=== PATIENT | female | born 1945 | race Caucasian/White ===

== ENCOUNTER 2022-01-24 10:12 | Inpatient (IN) | payer MEDICARE, OTHER, SELFPAY ==
[2022-01-24] VITALS (10 sets, daily range): BP systolic 102–151; BP diastolic 40–63; PULSE 58–70; RESP 11–18; TEMP 36.4–37; O2SAT 98–100; BMI 21.0
--- NOTE | ~2022-01-24 | CT_ITS ---
EXAMINATION: CT HEAD WITHOUT CONTRAST CLINICAL INFORMATION: Syncope. Head trauma. COMPARISON: None TECHNIQUE: Contiguous axial imaging was performed from the skull base to vertex without intravenous administration of contrast. This CT examination was performed using dose optimization techniques as appropriate, variously including the following: *Automated exposure control *Adjustment of mA and/or kV according to patient size (this includes techniques or standardized protocols for targeted exams where dose is matched to indication/reason for exam; i.e. extremities or head) *Use of iterative reconstruction technique DLP: 598 mGy-cm FINDINGS: There is no evidence of acute intracranial hemorrhage or territorial infarction. No abnormal mass effect or midline shift is seen. Bautista to white matter differentiation is well preserved. No extra-axial fluid collections are identified. The ventricles are normal in size. There is no abnormal attenuation within the brain parenchyma. The osseous structures and soft tissues are normal. The mastoid air cells and visualized portions of the paranasal sinuses are well aerated. CT/CT head/brain wo con IMPRESSION: Unremarkable exam.
--- NOTE | ~2022-01-24 | CT_ITS ---
EXAMINATION: CT ANGIOGRAM OF THE CHEST WITH AND WITHOUT CONTRAST (CT PULMONARY ANGIOGRAM FOR PE) CLINICAL INFORMATION: Reason for Exam r/o PE syncope twave inversions rib fxs COMPARISON: Left rib x-rays from earlier the same day TECHNIQUE: Prior to contrast administration, noncontrast localization images were obtained. Subsequently, multidetector volumetric imaging was performed from the thoracic inlet to below the diaphragms following the administration of 85 mL Omnipaque 350 intravenous contrast. No contrast reaction reported Sagittal, coronal, and MIP oblique sagittal reformatted images were obtained on the CT workstation, uploaded to PACS, and reviewed. This CT examination was performed using dose optimization techniques as appropriate, variously including the following: *Automated exposure control *Adjustment of mA and/or kV according to patient size (this includes techniques or standardized protocols for targeted exams where dose is matched to indication/reason for exam; i.e. extremities or head) *Use of iterative reconstruction technique Total exam dose-length product 177 mGy-cm FINDINGS: QUALITY OF STUDY/CONTRAST BOLUS: Satisfactory. PULMONARY ARTERIES: No central or segmental pulmonary emboli. THORACIC AORTA: No aneurysm or dissection. LUNG: There is mild biapical pleural parenchymal scarring. There is subsegmental atelectasis at both lung bases. PLEURA: There is question of a very tiny left pneumothorax adjacent to the rib fractures, for example measuring 2 mm coronal reconstructed image 50 and axial image 33. There is no pleural effusion. MEDIASTINUM: Normal heart size. No pericardial effusion. No hilar or mediastinal lymphadenopathy. No evidence of septal bowing or right heart strain. CHEST WALL/AXILLA: No axillary or internal mammary lymphadenopathy. OSSEOUS STRUCTURES: There are left posterior lateral ninth, 10th and 11th rib fractures. There are degenerative changes of the spine. UPPER ABDOMEN: Unremarkable. No reflux of contrast into the hepatic veins to suggest elevated right heart pressures. CT/CT angio chest PE protocol IMPRESSION: No evidence of pulmonary embolism. Acute left posterior lateral ninth, 10th and 11th rib x-rays. Question tiny left pneumothorax measuring maximum 2 mm in thickness. VTE: negative
--- NOTE | ~2022-01-24 | CT_ITS ---
EXAMINATION: CT CERVICAL SPINE WITHOUT CONTRAST CLINICAL INFORMATION: Fall. Syncope. COMPARISON: None TECHNIQUE: Axial images through the cervical spine without contrast. Sagittal and coronal reconstructions on the technologist workstation were performed. This CT examination was performed using dose optimization techniques as appropriate, variously including the following: *Automated exposure control *Adjustment of mA and/or kV according to patient size (this includes techniques or standardized protocols for targeted exams where dose is matched to indication/reason for exam; i.e. extremities or head) *Use of iterative reconstruction technique DLP: 261 mGy-cm FINDINGS: There is head tilt to the right. Bone alignment is otherwise normal. No fracture or dislocation is seen. There is degenerative spondylosis and degenerative disc disease at C4-C5 and C5-C6. There are degenerative changes at the C1 dens articulation. Prevertebral soft tissues are normal. There is biapical pleural parenchymal scarring. CT/CT cervical spine wo con IMPRESSION: Degenerative changes. No fracture or dislocation seen. Fleischner guidelines were followed.
--- NOTE | ~2022-01-24 | CT_ITS ---
EXAMINATION: CT ABDOMEN AND PELVIS WITH CONTRAST CLINICAL INFORMATION: Multiple rib fractures. Rule out intra-abdominal injury COMPARISON: None TECHNIQUE: Multidetector volumetric images were obtained from the superior aspect of the liver through the pubic symphysis following administration 85 mL of Omnipaque 350 intravenous contrast. Sagittal and coronal reformatted images were obtained on the technologist's workstation. Oral contrast: Yes This CT examination was performed using dose optimization techniques as appropriate, variously including the following: *Automated exposure control *Adjustment of mA and/or kV according to patient size (this includes techniques or standardized protocols for targeted exams where dose is matched to indication/reason for exam; i.e. extremities or head) *Use of iterative reconstruction technique DLP: 340 mGy-cm FINDINGS: LUNG BASES: The visualized lung bases are unremarkable. LIVER, GALLBLADDER, AND BILIARY TREE: The liver is normal in size, shape, and attenuation. No focal hepatic lesion or biliary ductal dilatation is present. The gallbladder is unremarkable with no evidence of radiopaque gallstones, gallbladder wall thickening, or obvious pericholecystic inflammatory changes. PANCREAS: Unremarkable. SPLEEN: Unremarkable. ADRENAL GLANDS: Unremarkable. KIDNEYS AND URETERS: The kidneys are normal in size, shape, and attenuation. No hydronephrosis, hydroureter, or calculi seen. No perinephric stranding. BLADDER: Unremarkable. GASTROINTESTINAL TRACT: There is stool throughout the colon questionable for constipation. The small and large bowel are otherwise unremarkable. No ascites or free air is seen. ABDOMINAL WALL: No significant hernia is appreciated. LYMPH NODES: Normal. VASCULAR: Unremarkable. PELVIC VISCERA: There is a small 1.3 cm left ovarian cyst. Uterus and adnexa are otherwise unremarkable. OSSEOUS STRUCTURES: There are left posterior lateral 10th and 11th rib fractures. There are degenerative changes of the spine. CT/CT abdomen pelvis w con IMPRESSION: No acute findings in the abdomen or pelvis.. Fleischner guidelines were followed.
--- NOTE | ~2022-01-24 | XR_ITS ---
EXAMINATION: XR CHEST CLINICAL INFORMATION: Follow up pneumothorax. COMPARISON: Radiograph done earlier today at 5:28 PM. TECHNIQUE: AP view of the chest was obtained. FINDINGS: Stable appearance of the cardiomediastinal silhouette. A 0.2 cm rounded body projecting over the left cardiomediastinal silhouette is unchanged, possibly an external marker or foreign body. No focal airspace opacities. No appreciable pneumothorax. No pleural effusions. Left posterolateral rib fractures are best assessed on prior CT. XR/XR chest 1V IMPRESSION: No pneumothorax. No acute cardiopulmonary findings.
--- NOTE | ~2022-01-24 | XR_ITS ---
EXAMINATION: XR CHEST CLINICAL INFORMATION: Pneumothorax COMPARISON: CTA chest and left rib x-rays 01/24/2022 TECHNIQUE: Frontal view of the chest was obtained. FINDINGS: Cardiac silhouette is normal in size. Lungs are well aerated. There is no lobar consolidation. No pleural effusion or pneumothorax. Left posterolateral rib fractures again noted but better assessed on CT imaging from earlier today. XR/XR chest 1V IMPRESSION: No pneumothorax identified by radiographic evaluation.
--- NOTE | ~2022-01-24 | XR_ITS ---
EXAMINATION: XR RIBS, LEFT CLINICAL INFORMATION: Fall. Left rib pain COMPARISON: None TECHNIQUE: 3 views of the left ribs were obtained. FINDINGS: The lungs are hyperinflated with minimal bilateral apical pleural thickening. No acute pneumonic process seen. The heart size and pulmonary vascularity is normal. Multiple views of left ribs reveal mildly displaced fractures left anterolateral eighth, ninth, 10th ribs. XR/XR ribs LT min 3V w CXR1V IMPRESSION: Displaced left lateral eighth, ninth and 10th rib fractures. There is no pneumothorax. There is minimal bilateral apical pleural thickening.
[2022-01-24 10:35] LABS: MANUAL DIFF FLAG NO
[2022-01-24 10:37] LABS: Basophils Absolute Auto 0.1 X10*3/uL (0.0-0.2); Basophils Percent Auto 0.5 % (0-2); Eosinophils Percent Auto 0.3 % (0-4); Hematocrit 42.7 % (37.0-47.0); Hemoglobin 13.5 g/dl (12.0-16.0); Imm Gran Abs Auto 0.04 X10*3/uL (0.00-0.03); Imm Gran Pct Auto 0.4 % (0.0-0.4); Lymphocytes Absolute Auto 0.7 X10*3/uL (1.2-4.9); Lymphocytes Percent Auto 6.6 % (20-40); Mean Corpuscular HGB Conc 31.6 g/dl (31.0-35.0); Mean Corpuscular Hemoglobin 26.7 pg (27.0-33.0); Mean Corpuscular Volume 84.4 fL (80.0-98.0); Mean Platelet Volume 10.3 fL (9.4-12.3); Monocytes Absolute Auto 0.5 X10*3/uL (0.1-1.2); Monocytes Percent Auto 4.6 % (2-11); Neutrophils Absolute Auto 9.9 x10*3/uL (2.0-8.3); Neutrophils Percent Auto 87.6 % (45-73); Platelet Count 239 X10*3/uL (160-400); Red Blood Count 5.06 X10*6/uL (4.20-5.50); Red Cell Distribution Width 13.6 % (11.0-16.0); White Blood Count 11.3 X10*3/uL (4.8-10.8)
[2022-01-24 10:52] LABS: Anion Gap 12 (12-20); Blood Urea Nitrogen 27 mg/dL (9-16); Calcium 9.3 mg/dL (8.4-10.2); Carbon Dioxide 26 mmol/L (22-29); Chloride 104 mmol/L (96-108); Creatinine Clr Calc Pharmacy 44.6; Estimated Glomerular Filt Rate > 60; Glucose Random 126 mg/dL (60-115); Potassium 4.3 mmol/L (3.3-5.1); Sodium 138 mmol/L (135-145)
--- NOTE | 2022-01-24 10:52 | ECG_ITS ---
Test Reason : SYNCOPE Blood Pressure : / mmHG Vent. Rate : 067 BPM Atrial Rate : 067 BPM P-R Int : 154 ms QRS Dur : 078 ms QT Int : 422 ms P-R-T Axes : 065 071 009 degrees QTc Int : 445 ms Normal sinus rhythm Nonspecific ST and T wave abnormality Abnormal ECG No previous ECGs available Referred By: Marielle Sagastume Electronically Signed By:MARCELLO ARELLANO
--- NOTE | 2022-01-24 10:57 | ED_ITS ---
HPI - Syncope General Chief Complaint: Syncope Stated Complaint: possible fainting/bump above eyebrow Time Seen by Provider: 01/24/22 10:29 Source: patient Mode of arrival: ambulatory History of Present Illness HPI narrative: 76-year-old female with no known past medical history presenting to the ED complaining of suspected syncopal episode this morning, patient woke up on the bathroom floor with ecchymosis noted to right periorbital area, and left low back/rib pain. Reports remembers getting up and walking to bathroom and then waking up on floor, does not remember symptoms prior to fall. Denies feeling lightheaded/dizzy or passing out. Denies taking anticoagulation. Denies vision change/chills, CP/SOB, abdominal pain, nausea/vomiting, urinary incontinence/retention. MD complaint: loss of consciousness, felt faint and collapsed Related Data Home Medications Medication Instructions Recorded Confirmed pravastatin 20 mg tablet 1 tab PO DAILY 01/24/22 01/24/22 Allergies Allergy/AdvReac Type Severity Reaction Status Date / Time raloxifene [From Evista] Allergy Photosensit Verified 01/24/22 10:21 ivity Review of Systems Review of Systems: Constitutional: No Fever, No Chills, No Fatigue, No Malaise ENT/Mouth: No Ear Pain, No sore throat, No Rhinorrhea, No Swallowing Difficulty Eyes: No Eye Pain, No Swelling, No Redness, No Discharge, No visual changes Cardiovascular: No Chest Pain, No SOB, No Edema, No Palpitations Respiratory: No Cough, No Sputum, No Dyspnea Gastrointestinal: No Nausea, No Vomiting, No Diarrhea, No Constipation, No Abdominal pain Genitourinary: No irregular bleeding, No Dysuria, No Urinary Frequency, No Hematuria, No Urinary Incontinence, No Urgency, No Flank Pain, No Hesitancy Musculoskeletal: + joint pain, No Myalgias, No Joint Swelling Skin: + Skin Lesions, No rash Neuro: No Weakness, No Numbness, No Paresthesias, + Loss of Consciousness, No Dizziness, + Headache Neurologic: Denies Abnormal speech present [facility] Past Medical History Attestation statement: The following information was validated with the patient. Social History Social History Advance Directives: Yes Advance Directives Information Provided: Yes Advance Directives on File: No Physical Exam Vital Signs: Vital Signs: Last Vital Signs Temp 98.5 F 01/24/22 10:43 Pulse 66 01/24/22 13:46 Resp 18 01/24/22 13:46 BP 129/52 L 01/24/22 13:46 Pulse Ox 99 01/24/22 13:46 BMI result Body Mass Index 21.0 Const: General: cooperative, healthy appearing, no acute distress, alert, awake and Physically active Orientation/consciousness: patient oriented x3 Limitations: no limitations HENMT: Other: + right supraorbital ecchymosis and swelling noted with tenderness to palpation. No orbital step-off. EOMs intact without entrapment. Head: Yes normal to inspection Ears: hearing grossly normal bilaterally General nose exam: Normal external nose present Face and sinus: Yes normal facial exam Mouth: Normal oral and palatal mucosa present Throat: Yes posterior oropharynx normal, Yes tonsils normal, Yes uvula midline and No peritonsillar mass Eyes: General: appearance normal, both eyes and all related structures Pupils: Equal, round and reactive pupils present EOM: EOMs intact bilaterally Neck: Other: No midline cervical spinous tenderness/step-off or deformity Neck: Yes normal visual inspection and Yes trachea midline Chest: Other: + left posteriolateral rib tenderness Chest palpation & inspection: no crepitus and tenderness Resp: Effort & Inspection: normal respiratory effort and no respiratory distress Auscultation: clear to auscultation bilaterally, no crackles and no wheezes Cardio: Rate: regular rate Heart sounds: S1 normal heart sound present and S2 normal heart sound present GI: Inspection: Yes normal to inspection Palpation (GI): Soft to palpation, nontender, no guarding and not rigid : General: Yes no CVA tenderness Back/Spine/Pelvis: Other: No midline thoracic/lumbar spinous tenderness Back: no CVA tenderness Skin: Rashes: no rashes Wounds: no wounds Neuro: General: patient oriented x3, gait normal, tone normal, moves all extremities, no focal motor deficits and CN's II-XI intact bilaterally Cran ial nerves: Yes CN's II-XII intact bilaterally, Yes Equal, round and reactive pupils present, Yes Bilaterally intact EOM present, Yes Nystagmus not present and Yes Normal facial strength present Cognition (Neuro): normal cognition Speech: No Abnormal speech present Gait exam (Neuro): Normal gait present Motor exam (neuro): 5/5 motor strength present throughout, Pronator motor f unction not present and no tremor noted Coordination: [id number] test normal Romberg Test: Negative Extrem: General: Yes normal to inspection and Yes full ROM Course Course Course Narrative: -1221--mild leukocytosis of 11.3. BUN elevated to 27 consistent with dehydration, CPK 151. labs otherwise unremarkable -initial troponin negative will obtain 3 hour repeat. XR ribs LT min 3V w CXR1V IMPRESSION: Displaced left lateral eighth, ninth and 10th rib fractures. There is no pneumothorax. There is minimal bilateral apical pleural thickening. > No flail chest. Will obtain CT chest PE protocol to r/o PE and CT abdomen/pelvis for further eval/rule out underlying splenic injury CT head/brain wo con IMPRESSION: Unremarkable exam. CT cervical spine wo con IMPRESSION: Degenerative changes. No fracture or dislocation seen.? Fleischner guidelines were followed. -1625--CT angio chest PE protocol IMPRESSION: No evidence of pulmonary embolism. Acute left posterior lateral ninth, 10th and 11th rib x-rays. Question tiny left pneumothorax measuring maximum 2 mm in thickness. VTE: negative > patient placed on oxygen. Thoracic surgery consulted CT abdomen pelvis w con IMPRESSION: No acute findings in the abdomen or pelvis. Fleischner guidelines were followed. -1646--spoke to thoracic surgeryAlfredo, recommended admission for pain control, serial CXR q6-8 hours, incentive spirometer and pulmonary toilet MDM - Syncope MDM Narrative Medical decision making narrative: 76-year-old female with no known past medical history presenting to the ED complaining of suspected syncopal episode this morning, patient woke up on the bathroom floor with ecchymosis noted to right periorbital area, and left low back/rib pain. On exam vital signs stable, and 80/nontoxic appearing, A&O x3, no focal neuro deficits, ecchymosis noted to right overall area and left-sided rib tenderness elicited. No midline spinous tenderness throughout. Concerning for syncope vs ?seizure vs dehydration vs ACS vs fx's. Rule out metabolic and infectious etiologies and orthostasis Plan: EKG, labs, UA, CXR, head/C-spine CT, orthostatics, anticipated admission Differential Diagnosis Differential diagnosis: Likely syncope due to orthostatic hypotension, vasovagal syncope and dehydration Medical Records Attestation: I reviewed the patient's medical records. Lab Data Attestation: I reviewed the patient's lab results. Result diagrams: 01/24/22 10:27 01/24/22 10: Labs: Lab Results 01/24/22 01/24/22 01/24/22 Range/Units 10: 10: 10:27 WBC 11.3 H (4.8-10.8) X10*3/uL RBC 5.06 (4.20-5.50) X10*6/uL Hgb 13.5 (12.0-16.0) g/dl Hct 42.7 (37.0-47.0) % MCV 84.4 (80.0-98.0) fL MCH 26.7 L (27.0-33.0) pg MCHC 31.6 (31.0-35.0) g/dl RDW 13.6 (11.0-16.0) % Plt Count 239 (160-400) X10*3/uL MPV 10.3 (9.4-12.3) fL Immature Gran % (Auto) 0.4 (0.0-0.4) % Neut % (Auto) 87.6 H (45-73) % Lymph % (Auto) 6.6 L (20-40) % Robertson % (Auto) 4.6 (2-11) % Eos % (Auto) 0.3 (0-4) % Baso % (Auto) 0.5 (0-2) % Lymph # (Auto) 0.7 L (1.2-4.9) X10*3/uL Robertson # (Auto) 0.5 (0.1-1.2) X10*3/uL Eos # (Auto) 0.0 (0.0-0.4) X10*3/uL Baso # (Auto) 0.1 (0.0-0.2) X10*3/uL Abs Immat Gran (auto) 0.04 H (0.00-0.03) X10*3/uL Absolute Neuts (auto) 9.9 H (2.0-8.3) x10*3/uL Absolute Nucleated RBC 0.000 (0.0-0.012) X10*3/uL Nucleated RBC % (auto) 0.0 (0.0-0.2) /100WBC PT (9.9-13.0) SEC INR (0.9-1.1) APTT (24.1-38.0) SEC Sodium 138 (135-145) mmol/L Potassium 4.3 (3.3-5.1) mmol/L Chloride 104 (96-108) mmol/L Carbon Dioxide 26 (22-29) mmol/L Anion Gap 12 (12-20) BUN 27 H (9-16) mg/dL Creatinine 0.90 (0.5-1.4) mg/dL Estim Creat Clear Calc 44.6 Estimated GFR > 60 Random Glucose 126 H (60-115) mg/dL Calcium 9.3 (8.4-10.2) mg/dL Magnesium 2.3 (1.6-2.6) mg/dL Total Bilirubin 0.4 (0.0-1.0) mg/dL Direct Bilirubin 0.2 (0.0-0.5) mg/dL AST 30 (5-31) U/L ALT 21 (0-31) U/L Alkaline Phosphatase 74 (39-117) U/L Total Creatine Kinase 151 H (26-140) U/L Troponin I High Sens < 3.5 (<3.5-17.0) ng/L Total Protein 7.3 (6.5-8.0) g/dL Albumin 4.2 (3.5-5.0) g/dL COVID-19 (ADAM) (Negative) COVID-19 Clin Com 01/24/22 01/24/22 01/24/22 Range/Units 11:15 13:54 14:38 WBC (4.8-10.8) X10*3/uL RBC (4.20-5.50) X10*6/uL Hgb (12.0-16.0) g/dl Hct (37.0-47.0) % MCV (80.0-98.0) fL MCH (27.0-33.0) pg MCHC (31.0-35.0) g/dl RDW (11.0-16.0) % Plt Count (160-400) X10*3/uL MPV (9.4-12.3) fL Immature Gran % (Auto) (0.0-0.4) % Neut % (Auto) (45-73) % Lymph % (Auto) (20-40) % Robertson % (Auto) (2-11) % Eos % (Auto) (0-4) % Baso % (Auto) (0-2) % Lymph # (Auto) (1.2-4.9) X10*3/uL Robertson # (Auto) (0.1-1.2) X10*3/uL Eos # (Auto) (0.0-0.4) X10*3/uL Baso # (Auto) (0.0-0.2) X10*3/uL Abs Immat Gran (auto) (0.00-0.03) X10*3/uL Absolute Neuts (auto) (2.0-8.3) x10*3/uL Absolute Nucleated RBC (0.0-0.012) X10*3/uL Nucleated RBC % (auto) (0.0-0.2) /100WBC PT 11.9 (9.9-13.0) SEC INR 1.0 (0.9-1.1) APTT 31.4 (24.1-38.0) SEC Sodium (135-145) mmol/L Potassium (3.3-5.1) mmol/L Chloride (96-108) mmol/L Carbon Dioxide (22-29) mmol/L Anion Gap (12-20) BUN (9-16) mg/dL Creatinine (0.5-1.4) mg/dL Estim Creat Clear Calc Estimated GFR Random Glucose (60-115) mg/dL Calcium (8.4-10.2) mg/dL Magnesium (1.6-2.6) mg/dL Total Bilirubin (0.0-1.0) mg/dL Direct Bilirubin (0.0-0.5) mg/dL AST (5-31) U/L ALT (0-31) U/L Alkaline Phosphatase (39-117) U/L Total Creatine Kinase (26-140) U/L Troponin I High Sens < 3.5 (<3.5-17.0) ng/L Total Protein (6.5-8.0) g/dL Albumin (3.5-5.0) g/dL COVID-19 (ADAM) Negative (Negative) COVID-19 Clin Com See Note ECG Data Attestation: I personally reviewed and interpreted this ECG as follows: ECG interpretation date: 01/24/22 ECG interpretation time: 10:31 Interpretation: EKG normal sinus rhythm at a rate of 67. Pr interval 154. T wave inversions in V4, V5, and V6. Discharge Plan Discharge Clinical Impression: Syncope, Multiple fractures of ribs, Pneumothorax Patient Disposition: Admitted As Inpatient
--- NOTE | 2022-01-24 11:25 | PHA.MEDREC ---
Pharmacy Consult ? Medication Reconciliation Pharmacy has completed the medication reconciliation.
[2022-01-24 11:28] LABS: Alanine Aminotransferase 21 U/L (0-31); Albumin Level 4.2 g/dL (3.5-5.0); Alkaline Phosphatase 74 U/L (39-117); Aspartate Amino Transferase 30 U/L (5-31); Bilirubin Direct 0.2 mg/dL (0.0-0.5); Bilirubin Total 0.4 mg/dL (0.0-1.0); Magnesium 2.3 mg/dL (1.6-2.6); Total Protein 7.3 g/dL (6.5-8.0)
[2022-01-24 11:37] LABS: Troponin-I High Sensitivity < 3.5 ng/L (<3.5-17.0)
[2022-01-24 11:43] LABS: COVID-19 Test Negative (Negative)
[2022-01-24] MEDS: 0.9 % Sodium Chloride 1,000 ML 999 ML IV (11:55)
[2022-01-24 14:07] LABS: Prothrombin Time 11.9 SEC (9.9-13.0)
[2022-01-24 14:09] LABS: Partial Thromboplastin Time 31.4 SEC (24.1-38.0)
[2022-01-24] MEDS: 0.9 % Sodium Chloride 500 ML 999 ML IV (14:20)
[2022-01-24] MEDS: Acetaminophen 325 MG TABLET 650 MG PO (14:21)
[2022-01-24 15:07] LABS: Troponin-I High Sensitivity < 3.5 ng/L (<3.5-17.0)
[2022-01-24] MEDS: iohexoL 350 MG/ML 100 ML INFUS..BTL IV (15:11)
--- NOTE | 2022-01-24 17:19 | PM.IMHP ---
History of Present Illness Date of Service: 01/24/22 Attending physician on admission: Nella Perkins Chief Complaint: Syncope 76-year-old female patient with past medical history significant for hyperlipidemia on pravastatin presented to [facility] after an episode of syncope as per patient she woke up at 04:00 and had right leg g for which she massaged and was able to walk to the bathroom, she remember urinating, then flush the toilet and then found herself on the floor, she denies any preceding symptoms of lightheadedness dizziness, no chest pain, no palpitation she denied any coughing straining, she does not remember how long she was unconscious for but she was unable to stand up due to weakness therefore crawl to her bedroom and called her neighbor brought her to the emergency room, patient denies similar episodes in the past denies recent bout of nausea vomiting diarrhea no fevers no chills denies urinary symptoms of urgency frequency, no recent bout of cough or sputum production in the emergency room she underwent extensive workup including CT head that was unremarkable, CT cervical spine without contrast showed degenerative changes, no fractures or dislocation, CT angio chest PE protocol showed no evidence of PE but showed acute left posterior lateral 9 tendon 11th rib fractures with a small tiny left pneumothorax measuring 2 mm in thickness, CT abdomen and pelvis showed no acute findings in the abdomen and pelvis, CBC unremarkable, blood sugar 126, electrolytes stable room normal renal function, patient treated in the emergency room with IV fluids analgesics case discussed with thoracic surgery they recommended serial CT chest and pain management patient is now being admitted to [facility] for pain control, follow-up on pneumothorax with serial imaging study, and workup for syncope Review of Systems Review of Systems: General no headache no dizziness no fever chills. CVS no chest pain, no palpitation. Respiratory no cough, no sob Gastrointestinal no nausea, no vomiting, no abdominal pain no urinary symptoms Musculoskeletal left lower chest discomfort Yes all other systems are reviewed and are negative PMFSH Functional capacity: independent ambulation Pertinent family history: Both parents had diabetes mellitus and of cardiovascular disease Social History Household Members: None Housing: Assisted Living Facility Do you presently have visiting nurse or other home services: No Patient Tobacco Use Status: Never used Tobacco Use of substances other than those prescribed or required for medical reasons: No Currently Displaying Signs/Symptoms of Drug Intoxication Withdrawal: No Have you been hit, kicked, punched, or otherwise hurt by someone within the past year? If so, by whom?: No Do you feel safe in your current relationship?: No Current Relationship Is there a partner from a previous relationship who is making you feel unsafe now?: No Are you made to feel afraid or neglected: No Advance Directives: Yes Advance Directives Information Provided: Yes Advance Directives on File: No Advance Directives Date on File: 01/24/22 Do you have thoughts of harming others: None Do you have a plan to hurt others: No Plan Recently lost weight without trying: No Eating poorly because of decreased appetite: No Nutrition Risks: No Nutritional Risk service: No Current occupational status: retired [employer] Allergies Allergy/AdvReac Type Severity Reaction Status Date / Time raloxifene [From Evista] Allergy Photosensit Verified 01/24/22 10:21 ivity Active Medications: Current Medications Acetaminophen (Acetaminophen 325 Mg Tablet) 650 mg PO Q6H PRN PRN Reason: Pain, Mild (Pain Scale 1-3) Enoxaparin Sodium (Enoxaparin Sodium 40 Mg/0.4 Ml Syringe) 40 mg SUBCUT Q24H [facility] Melatonin (Melatonin 3 Mg Tablet) 3 mg PO BEDTIME PRN PRN Reason: Insomnia Morphine Sulfate (Morphine Sulfate 4 Mg/Ml Cartridge) 3 mg IVPUSH Q4H PRN; Protocol PRN Reason: Pain, Severe (Pain Scale 7-10) Ondansetron HCl (Ondansetron Hcl 4 Mg/2 Ml Vial) 4 mg IVPUSH Q8H PRN PRN Reason: Nausea and Vomiting Oxycodone HCl (Oxycodone Hcl Immed Release 5 Mg Tablet) 5 mg PO Q6H PRN PRN Reason: Pain, Moderate (Pain Scale 4-6 Pharmacy Consult (Consult Rx Perform Med Rec) 1 each MISCELLANE ONCE PRN PRN Reason: Consult order Sodium Chloride (0.9 % Sodium Chloride Flush 3 Ml Syringe) [facility] Home Medications Medication Instructions Recorded Confirmed Last Taken Type pravastatin 20 mg tablet 1 tab PO DAILY 01/24/22 01/24/22 01/23/22 History Physical Exam Vital Signs and Narrative: Vital Signs: Last Vital Signs Temp 98.5 F 01/24/22 10:43 Pulse 66 01/24/22 13:46 Resp 18 01/24/22 13:46 BP 129/52 L 01/24/22 13:46 Pulse Ox 99 01/24/22 13:46 BMI result Body Mass Index 21.0 Const: Other: General sitting comfortably in no acute distress. Neck supple no JVD. CVS regular rate rhythm, no murmurs Respiratory lungs clear to auscultation, no respiratory distress, no wheeze, no rhonchi. Gastrointestinal abdomen soft, nontender, bowel sounds audible, no guarding , no rigidity. Extremities no edema. Neuro nonfocal , moving all 4 extremity , speech clear, cranial nerves 2-12 intact Skin right supraorbital ecchymosis and swelling, no rash Psych appropriate affect Musculoskeletal tenderness left lower chest Results Labs CBC and Chem 7: 01/24/22 10:27 01/24/22 10:27 Labs: Laboratory Results - last 24 hr 01/24/22 01/24/22 01/24/22 10:27 10:27 11:15 MCV 84.4 MCH 26.7 L MCHC 31.6 RDW 13.6 Plt Count 239 MPV 10.3 Immature Gran % (Auto) 0.4 Neut % (Auto) 87.6 H Lymph % (Auto) 6.6 L [place] % (Auto) 4.6 Eos % (Auto) 0.3 Baso % (Auto) 0.5 Lymph # (Auto) 0.7 L [place] # (Auto) 0.5 Eos # (Auto) 0.0 Baso # (Auto) 0.1 Abs Immat Gran (auto) 0.04 H Absolute Neuts (auto) 9.9 H Absolute Nucleated RBC 0.000 Nucleated RBC % (auto) 0.0 PT INR APTT Anion Gap 12 Estim Creat Clear Calc 44.6 Estimated GFR > 60 Random Glucose 126 H Calcium 9.3 Magnesium 2.3 Total Bilirubin 0.4 Direct Bilirubin 0.2 AST 30 ALT 21 Alkaline Phosphatase 74 Total Creatine Kinase 151 H Total Protein 7.3 Albumin 4.2 COVID-19 (ADAM) Negative COVID-19 Clin Com See Note 01/24/22 13:54 MCV MCH MCHC RDW Plt Count MPV Immature Gran % (Auto) Neut % (Auto) Lymph % (Auto) [place] % (Auto) Eos % (Auto) Baso % (Auto) Lymph # (Auto) [place] # (Auto) Eos # (Auto) Baso # (Auto) Abs Immat Gran (auto) Absolute Neuts (auto) Absolute Nucleated RBC Nucleated RBC % (auto) PT 11.9 INR 1.0 APTT 31.4 Anion Gap Estim Creat Clear Calc Estimated GFR Random Glucose Calcium Magnesium Total Bilirubin Direct Bilirubin AST ALT Alkaline Phosphatase Total Creatine Kinase Total Protein Albumin COVID-19 (ADAM) COVID-19 Clin Com Imaging Radiologist's Impressions: Impressions Ribs X-Ray 01/24/22 11:05 IMPRESSION: Displaced left lateral eighth, ninth and 10th rib fractures. There is no pneumothorax. There is minimal bilateral apical pleural thickening. Cervical Spine CT 01/24/22 11:16 IMPRESSION: Degenerative changes. No fracture or dislocation seen. Fleischner guidelines were followed. Head CT 01/24/22 11:16 IMPRESSION: Unremarkable exam. Abdomen/Pelvis CT 01/24/22 15:40 IMPRESSION: No acute findings in the abdomen or pelvis.. Fleischner guidelines were followed. Chest CTA 01/24/22 15:40 IMPRESSION: No evidence of pulmonary embolism. Acute left posterior lateral ninth, 10th and 11th rib x-rays. Question tiny left pneumothorax measuring maximum 2 mm in thickness. VTE: negative Assessment and Plan (1) Syncope: Status: Acute (2) Multiple fractures of ribs: Status: Acute (3) Pneumothorax: Status: Acute Plan 76-year-old female with past medical history significant for hyperlipidemia presented to [facility] with an episode of syncope diagnosed to have left lateral 9,10 the 11th rib fractures with small pneumothorax will be admitted further treatment and evaluation of syncope and for serial imaging studies for left pneumothorax. Syncope Unknown etiology differential diagnosis orthostatic hypotension, vasovagal admit to telemetry rule out arrhythmia, question seizure obtain EEG Orthostatic blood pressure showed drop in systolic BP with standing no significant change in pulse. Status post 2 L of fluid in the emergency room will repeat orthostatic blood pressure CT head showed no evidence of stroke, no acute infection noted check UA, normal electrolytes, blood sugar and renal function Left displaced rib fractures 9,10 then [address] Place on by mouth oxycodone and IV morphine for pain control add incentive spirometry, cough medication Repeat serial chest x-ray Thoracic surgery consult noted to have worsening pneumothorax Hyperlipidemia continue pravastatin Code status full code DVT prophylaxis with Lovenox Patient will require inpatient hospitalization spending at least 2 midnight for pain control requiring IV analgesics and also need serial chest x-rays for close monitoring of pneumothorax with displaced rib fractures. Quality Stroke Does the patient have a stroke diagnosis?: No VTE Prior VTE?: No VTE Risk Level:: Medical - moderate - high VTE Device Contraindication: Treatment Not Indicated VTE Drug Contraindication: N/A - Med Ordered
[2022-01-24] MEDS: oxyCODONE HCl Immed Release 5 MG TABLET PO (17:20)
[2022-01-24 17:48] LABS: Appearance Urine CLEAR; Color Urine YELLOW; Glucose Urine UA NEG (NEG); Leukocyte Esterase Urine NEG (NEG); Nitrite Urine NEG (NEG); PH 6.5 (5.0-8.0); Urine Blood NEG (NEG); Urine Ketones 15 MG/DL (NEG); Urine Protein NEG (NEG-TRACE)
[2022-01-25] VITALS (9 sets, daily range): BP systolic 111–156; BP diastolic 52–69; PULSE 56–81; RESP 14–20; TEMP 36.2–37.1; O2SAT 95–100
--- NOTE | 2022-01-25 | EEG_ITS ---
This is a 16-channel EEG with an EKG lead. Patient is reported awake during the tracing. Background EEG rhythm is mixed theta-beta with intermittent left temporal sharp waves with 1 phase reversal at T5. Some lead and muscle artifacts are noted. Photic stimulation does not produce any significant abnormality. Hyperventilation is not performed. Cardiac lead does not reveal any significant abnormality. IMPRESSION: Abnormal electroencephalogram suggestive of left temporal irritability, which suggest risk for partial or complex partial seizures. MD EMMANUEL Cameron/DREW / [id number]
[2022-01-25] MEDS: oxyCODONE HCl Immed Release 5 MG TABLET PO ×3 (04:31→18:43)
[2022-01-25] MEDS: 0.9 % Sodium Chloride Flush 3 ML SYRINGE IVFLUSH ×3 (09:09→21:15)
[2022-01-25] MEDS: Pravastatin Sodium 20 MG TABLET PO (09:09)
--- NOTE | 2022-01-25 09:10 | MHC.CM.PN ---
PATIENT LIVES ALONE. SHE IS FULLY INDEPENDENT AND WALKS FREQUENTLY. NO DME OTHER THEN [employer] POL[employer] NO VNA OR ELDER SERVICES SHE DOES HAVE ACCESS TO HOME HEALTH AIDES IN HER [facility] [place] IF NEEDED. FRIEND PROVIDED TRANSPORT HERE AND WILL TRANSPORT PATIENT HOME. SHE HAS BEEN COVID VACCINATED X 3. IMM 01/25 IN CHART
[2022-01-25] MEDS: Acetaminophen 325 MG TABLET 650 MG PO ×2 (12:46→18:43)
--- NOTE | 2022-01-25 13:21 | HO.PM.IMPN ---
Subjective Subjective Date of Service: 01/25/22 Interval History: Complaining of pain left chest difficulty sitting up from lying position, no acute events overnight tele monitor showed no arrhythmia, patient denies chest pain, no palpitation no prior history of seizures no bout of recent nausea vomiting diarrhea, no fevers no chills. Review of Systems Review of Systems: Yes all other systems are reviewed and are negative Physical Exam Vital Signs: Vital Signs: Last Vital Signs Temp 97.2 F 01/25/22 12:00 Pulse 65 01/25/22 12:00 Resp 20 01/25/22 12:00 BP 127/60 01/25/22 12:00 Pulse Ox 96 01/25/22 12:00 BMI result Body Mass Index 21.0 Const: Other: General sitting comfortably in no acute distress.? Neck? supple no JVD. CVS? regular rate rhythm, no murmurs Respiratory lungs clear to auscultation, diminished breath sounds, no respiratory distress, no wheeze, no rhonchi. Gastrointestinal abdomen soft, nontender, bowel sounds audible,? no guarding , no rigidity. Extremities no edema. Neuro nonfocal , moving all 4 extremity , speech clear, cranial nerves 2-12 intact Skin right orbital ecchymosis , no rash Psych appropriate affect Musculoskeletal tenderness left lower chest Objective Data Active Medications Acetaminophen (Acetaminophen 325 Mg Tablet) 650 mg PO Q6H PRN PRN Reason: Pain, Mild (Pain Scale 1-3) Last Admin: 01/25/22 12:46 Dose: 650 mg Documented by: LINDA Enoxaparin Sodium (Enoxaparin Sodium 40 Mg/0.4 Ml Syringe) 40 mg SUBCUT Q24H [facility] Last Admin: 01/24/22 21:38 Dose: Not Given Documented by: LORENA Non-Admin Reason: Patient Refused Guaifenesin/Dextromethorphan (Guaifenesin Dm 100/10/5 Ml 5 Ml Syrup) 10 ml PO Q6H PRN PRN Reason: Cough Melatonin (Melatonin 3 Mg Tablet) 3 mg PO BEDTIME PRN PRN Reason: Insomnia Morphine Sulfate (Morphine Sulfate 4 Mg/Ml Cartridge) 3 mg IVPUSH Q4H PRN; Protocol PRN Reason: Pain, Severe (Pain Scale 7-10) Ondansetron HCl (Ondansetron Hcl 4 Mg/2 Ml Vial) 4 mg IVPUSH Q8H PRN PRN Reason: Nausea and Vomiting Oxycodone HCl (Oxycodone Hcl Immed Release 5 Mg Tablet) 5 mg PO Q6H PRN PRN Reason: Pain, Moderate (Pain Scale 4-6 Last Admin: 01/25/22 12:46 Dose: 5 mg Documented by: LINDA Pharmacy Consult (Consult Rx Perform Med Rec) 1 each MISCELLANE ONCE PRN PRN Reason: Consult order Pravastatin Sodium (Pravastatin Sodium 20 Mg Tablet) 20 mg PO DAILY [facility] Last Admin: 01/25/22 09:09 Dose: 20 mg Documented by: LINDA Sodium Chloride (0.9 % Sodium Chloride Flush 3 Ml Syringe) 3 ml IVFLUSH QSHIFT [facility] Last Admin: 01/25/22 09:09 Dose: 3 ml Documented by: LINDA Labs CBC & Chem 7: 01/24/22 10:27 01/24/22 10:27 Labs: Laboratory Results - last 24 hr 01/24/22 01/24/22 01/24/22 10:27 13:54 17:37 PT 11.9 INR 1.0 APTT 31.4 Magnesium 2.3 Total Bilirubin 0.4 Direct Bilirubin 0.2 AST 30 ALT 21 Alkaline Phosphatase 74 Total Creatine Kinase 151 H Total Protein 7.3 Albumin 4.2 Urine Color YELLOW Urine Appearance CLEAR Urine pH 6.5 Ur Specific [place] 1.010 Urine Protein NEG Urine Glucose (UA) NEG Urine Ketones 15 Urine Blood NEG Urine Nitrite NEG Ur Leukocyte Esterase NEG Assessment and Plan (1) Syncope: Status: Acute (2) Multiple fractures of ribs: Status: Acute (3) Pneumothorax: Status: Acute (4) Abnormal EEG: Status: Acute Plan 76-year-old female with past medical history significant for hyperlipidemia presented to [facility] with an episode of syncope diagnosed to have left lateral 9,10 the 11th rib fractures with small pneumothorax will be admitted further treatment and evaluation of syncope and for serial imaging studies for left pneumothorax. Syncope orthostatic blood pressures showed drop in systolic BP with standing with no change in pulse, no arrhythmia, CT head showed no abnormality, no acute infection UA normal normal electrolytes, normal blood sugar and renal function No evidence of vasovagal event, EEG showed left temporal irritability that suggests risk for partial complex partial seizures questions syncope due to seizure Will consult Neurology and place patient on Keppra 250 mg by mouth b.i.d. await further Neuro recommendation/add seizure precaution Echo pending Repeat orthostatic BP Left displaced rib fractures 9,10 then 11 with small pneumothorax Repeat chest x-ray showed no pneumothorax Persistent pain with difficulty in getting up from lying position continue by mouth oxycodone and IV morphine for pain control add incentive spirometry, cough medication Consult PT if continue to have difficulty with position change Hyperlipidemia continue pravastatin Code status full code DVT prophylaxis with Lovenox Patient will need continued in patient hospitalization since requiring IV analgesics for pain control related to rib fractures Quality Stroke Does the patient have a stroke diagnosis?: No VTE Prior VTE?: No VTE Risk Level:: Medical - moderate - high VTE Device Contraindication: Treatment Not Indicated VTE Drug Contraindication: N/A - Med Ordered
--- NOTE | 2022-01-25 14:00 | CA_ITS ---
Transthoracic Echocardiogram Patient (Last, First, Middle): Beatrice Contreras, Gender: Female Date of : 1945 Age: 76 Procedure Date: 01/25/2022 Procedure Type: Transthoracic Echocardiogram Location: S3W Height: 160.02 cm Weight: 53.98 kg BSA: 1.55 m2 Heart Rate: bpm BP: 127 / 60 mmHg Sales Representative [employer]: Referring MD: Nella Perkins MD Symptoms: syncope Study Quality: Fair ECG Rhythm: Sinus Conclusions: - The left ventricular systolic function is normal. The calculated ejection fraction is 63% by biplane method. - There is mild mitral valve regurgitation. - There is mild tricuspid valve regurgitation. Findings Left Ventricle Normal left ventricular cavity size. There is normal left ventricular wall thickness. The left ventricular systolic function is normal. The calculated ejection fraction is 63% by biplane method. There is no evidence of regional wall motion abnormalities. Diastolic function is normal for age. Right Ventricle Normal right ventricular cavity size and systolic function. Atria Both atria are normal in size. Aortic Valve There is a normal trileaflet aortic valve. There is no aortic valve stenosis. There is no aortic valve regurgitation. Mitral Valve The mitral valve appears normal. There is mild mitral valve regurgitation. There is no mitral valve stenosis. Pulmonic Valve The pulmonic valve was not well visualized. There is trace pulmonic valve regurgitation. Tricuspid Valve Normal tricuspid valve structure. There is mild tricuspid valve regurgitation. There is no evidence of pulmonary hypertension. Great Vessels The aortic annulus, sinuses of valsalva, and asc aorta are normal in size. Venous The inferior vena cava is normal in size and collapses greater than 50% with inspiration. Pericardium/Pleural There is no evidence of pericardial effusion. Prior Study Comparison No prior study available for comparison. Measurements 2D Linear Measurements IVSd: 1.01 0.6-0.9/0.6-1.0 cm LVIDd: 4.20 3.9-5.3/4.2-5.9 cm LVIDd Index: 2.71 2.4-3.2/2.2-3.1 cm/m2 LVIDs: 2.32 2.0-3.6 cm LVPWd: 0.98 0.7-1.1 cm LA Diam: 3.00 2.7-3.8/3.0-4.0 cm LAIDs Index: 1.94 1.5-2.3 cm/m2 LV Mass: 169.73 67-162/88-224 g LV Mass Index: 109.50 43-95/49-115 g/m2 LVOT Diam: 2.10 3.0+(-)1.3 cm 2D Systolic Function EF 4C: 53.80 >55% EF 2C: 70.60 >55% EF BiP: 63.30 >55% Mitral Valve MV Pk E: 0.70 MV PK A: 0.82 MV Decel Time: 224.00 E/A: 0.90 E'Lateral: 12.10 E'Medial: 6.85 E/E' Med: 10.30 E/E' Lat: 5.80 PHT: 66.00 MVA PHT: 3.33 Decel [place]: 3.14 Aortic Valve AoV Pk Lobo: 1.13 AoV Mn Lobo: 0.68 AoV VTI: 0.26 AoV Pk Grad: 5.00 Aov Mn Grad: 2.00 YESSY Cont.VTI: 2.69 LVOT LVOT Pk Lobo: 0.82 LVOT Mn Lobo: 0.56 LVOT VTI: 0.20 LVOT Pk Grad: 3.00 LVOT Mn Grad: 1.00 LVOT Diam: 2.10 LVOT Area: 3.46 Diastolic Function MV Pk E: 0.70 MV Pk A: 0.82 E/A: 0.90 E'Medial: 6.85 E/E' Med: 10.30 E' Laterial: 12.10 E/E' Lat: 5.80 Right Ventricle TAPSE (mm): 27.90 Tricuspid Valve TR Pk Lobo: 2.52 TR Pk Grad: 25.00 RA Press: 3.00 RVSP: 28.00 Great Vessels Aorta Sinus of Valsalva: 2.95 2.0-3.[address] [place]: 2.45 1.7-3.4 cm Pulmonary Valve PV Pk Lobo: 0.94 Peak PV Grad: 4.00 Updated in Other Vendor System with Status of Final Alonso Charlotn MD electronically signed on 01/25/2022 4:05:27 PM with status of Final
--- NOTE | 2022-01-25 15:58 | P.CNNE_ITS ---
History of Present Illness Data of Consult Service Date: 01/25/22 Primary Care Provider: Balwinder Hernandez MD [facility] Reason for consult: Syncope 76 years old woman I was asked to see for syncopal episode. She was in usual state of health when she went to bathroom in her home and then found herself on the ground. Apparently she had fallen sustaining a right black eye for no obvious reason. She was not medically sick and was not drinking alcohol. She said that she has quit drinking 4 years ago. Review of Systems Review of Systems: No prior cold or flu-like illness PMFSH Past Medical History Functional capacity: independent ambulation Social History Social History Household Members: None Housing: Assisted Living Facility Do you presently have visiting nurse or other home services: No Patient Tobacco Use Status: Never used Tobacco Use of substances other than those prescribed or required for medical reasons: No Currently Displaying Signs/Symptoms of Drug Intoxication Withdrawal: No Have you been hit, kicked, punched, or otherwise hurt by someone within the past year? If so, by whom?: No Do you feel safe in your current relationship?: No Current Relationship Is there a partner from a previous relationship who is making you feel unsafe now?: No Are you made to feel afraid or neglected: No Advance Directives: Yes Advance Directives Information Provided: Yes Advance Directives on File: No Advance Directives Date on File: 01/24/22 Do you have thoughts of harming others: None Do you have a plan to hurt others: No Plan Recently lost weight without trying: No Eating poorly because of decreased appetite: No Nutrition Risks: No Nutritional Risk service: No Current occupational status: retired Meds Allergies Allergy/AdvReac Type Severity Reaction Status Date / Time raloxifene [From Evista] Allergy Photosensit Verified 01/24/22 10:21 ivity Active Medications: Current Medications Acetaminophen (Acetaminophen 325 Mg Tablet) 650 mg PO Q6H PRN PRN Reason: Pain, Mild (Pain Scale 1-3) Last Admin: 01/25/22 12:46 Dose: 650 mg Documented by: Enoxaparin Sodium (Enoxaparin Sodium 40 Mg/0.4 Ml Syringe) 40 mg SUBCUT Q24H [facility] Last Admin: 01/24/22 21:38 Dose: Not Given Documented by: Guaifenesin/Dextromethorphan (Guaifenesin Dm 100/10/5 Ml 5 Ml Syrup) 10 ml PO Q6H PRN PRN Reason: Cough Levetiracetam (Levetiracetam 250 Mg Tablet) 250 mg PO BID [facility] Melatonin (Melatonin 3 Mg Tablet) 3 mg PO BEDTIME PRN PRN Reason: Insomnia Morphine Sulfate (Morphine Sulfate 4 Mg/Ml Cartridge) 3 mg IVPUSH Q4H PRN; Protocol PRN Reason: Pain, Severe (Pain Scale 7-10) Ondansetron HCl (Ondansetron Hcl 4 Mg/2 Ml Vial) 4 mg IVPUSH Q8H PRN PRN Reason: Nausea and Vomiting Oxycodone HCl (Oxycodone Hcl Immed Release 5 Mg Tablet) 5 mg PO Q6H PRN PRN Reason: Pain, Moderate (Pain Scale 4-6 Last Admin: 01/25/22 12:46 Dose: 5 mg Documented by: Pharmacy Consult (Consult Rx Perform Med Rec) 1 each MISCELLANE ONCE PRN PRN Reason: Consult order Pravastatin Sodium (Pravastatin Sodium 20 Mg Tablet) 20 mg PO DAILY [facility] Last Admin: 01/25/22 09:09 Dose: 20 mg Documented by: Sodium Chloride (0.9 % Sodium Chloride Flush 3 Ml Syringe) 3 ml IVFLUSH QSHIFT [facility] Last Admin: 01/25/22 09:09 Dose: 3 ml Documented by: Home Medications Medication Instructions Recorded Confirmed Last Taken Type pravastatin 20 mg tablet 1 tab PO DAILY 01/24/22 01/24/22 01/23/22 History Physical Exam Vital Signs: Vital Signs: Last Vital Signs Temp 98.8 F 01/25/22 15:11 Pulse 56 01/25/22 15:11 Resp 18 01/25/22 15:11 BP 133/63 01/25/22 15:11 Pulse Ox 95 01/25/22 15:11 BMI result Body Mass Index 21.0 Neuro: Other: She was alert and awake with normal spontaneity of speech fluency comprehension and affect. Face was symmetrical. Ecchymosis around right eye was noted. The re was no focal weakness. Balance gait and coordination are normal. Speech was normal. Results Labs CBC & Chem 7: 01/24/22 10:27 01/24/22 10:27 Labs: Cardiac Enzymes 01/24/22 Range/Units 10:27 Total Creatine Kinase 151 H (26-140) U/L Liver Function 01/24/22 Range/Units 10:27 Total Bilirubin 0.4 (0.0-1.0) mg/dL Direct Bilirubin 0.2 (0.0-0.5) mg/dL AST 30 (5-31) U/L ALT 21 (0-31) U/L Alkaline Phosphatase 74 (39-117) U/L Albumin 4.2 (3.5-5.0) g/dL Urine 01/24/22 Range/Units 17:37 Urine Color YELLOW Urine Appearance CLEAR Urine pH 6.5 (5.0-8.0) Ur Specific [place] 1.010 (1.005-1.025) Urine Protein NEG (NEG-TRACE) MG/DL Urine Glucose (UA) NEG (NEG) MG/DL Her electroencephalogram revealed left temporal sharp waves. 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 Assessment and Plan (1) Seizure disorder: Status: Acute 76 years old woman who probably has history of alcohol drinking presented with unexplained fall and passing out at home. Her EEG revealed left temporal sharp waves and head CT cerebellar and cortical atrophy. Exam was nonfocal. Likely explanation was seizure disorder. My suggestion would be to start levetiracetam 250 mg twice a day. I had a minda discussion with her informing her about the diagnosis. She should not drink alcohol. She was also advised not to drive at this time and avoid any activity that could put her life in danger such as swimming alone or sitting in a soaking tub alone. Procedures Date of Service Date of Service: 01/25/22
[2022-01-25] MEDS: levETIRAcetam 250 MG TABLET PO (21:15)
[2022-01-26] MEDS: oxyCODONE HCl Immed Release 5 MG TABLET PO (02:06)
[2022-01-26 03:43] VITALS: BP 118/60; PULSE 70; RESP 17; TEMP 36.3; O2SAT 96
[2022-01-26 06:58] VITALS: BP 127/60; PULSE 82; RESP 18; TEMP 36.2; O2SAT 96
[2022-01-26] MEDS: Acetaminophen 325 MG TABLET 650 MG PO (07:58)
[2022-01-26] MEDS: Pravastatin Sodium 20 MG TABLET PO (07:58)
[2022-01-26] MEDS: levETIRAcetam 250 MG TABLET PO (07:58)
[2022-01-26] MEDS: 0.9 % Sodium Chloride Flush 3 ML SYRINGE IVFLUSH (07:58)
[2022-01-26 09:07] VITALS: BP 127/60; PULSE 82; O2SAT 96
[2022-01-26] MEDS: Lidocaine 4 % Patch ADH..PATCH 1 PATCH TRANSDERMA (09:18)
[2022-01-26 10:58] VITALS: BP 110/57; PULSE 69; RESP 18; TEMP 36.1; O2SAT 97
--- NOTE | 2022-01-26 11:36 | P.DS_ITS ---
DS: Providers Provider Date of Service: 01/26/22 Date of admission: 01/24/22 17:12 Primary care physician: Balwinder Hernandez MD Consults: 01/25/22 12:45 Consult to Neurology Routine Consulting Provider: [facility] Reason for consultation: abnormal eeg /syncope Has provider been notified: No DS: Diagnosis Discharge Diagnosis (1) Seizure disorder: Status: Acute (2) Syncope: Status: Acute (3) Multiple fractures of ribs: Status: Acute (4) Pneumothorax: Status: Acute DS: Summary Hospital Course Hospital Course: from admission history and physical by hospitalist Nella Perkins, 01/24/22: 76-year-old female patient with past medical history significant for hyperlipidemia on pravastatin presented to [facility] after an episode of syncope as per patient she woke up at 04:00 and had right leg g for which she massaged and was able to walk to the bathroom, she remember urinating, then flush the toilet and then found herself on the floor, she denies any preceding symptoms of lightheadedness dizziness, no chest pain, no palpitation she denied any coughing straining, she does not remember how long she was unconscious for but she was unable to stand up due to weakness therefore crawl to her bedroom and called her neighbor brought her to the emergency room, patient denies similar episodes in the past denies recent bout of nausea vomiting diarrhea no fevers no chills denies urinary symptoms of urgency frequency, no recent bout of cough or sputum production in the emergency room she underwent extensive workup including CT head that was unremarkable, CT cervical spine without contrast showed degenerative changes, no fractures or dis location, CT angio chest PE protocol showed no evidence of PE but showed acute left posterior lateral 9 tendon 11th rib fractures with a small tiny left pneumothorax measuring 2 mm in thickness, CT abdomen and pelvis showed no acute findings in the abdomen and pelvis, CBC unremarkable, blood sugar 126, electrolytes stable room normal renal function, patient treated in the emergency room with IV fluids analgesics case discussed with thoracic surgery they recommended serial CT chest and pain management patient is now being admitted to [facility] for pain control, follow-up on pneumothorax? with serial imaging study, and workup for syncope Ms Contreras was admitted to the medical/surgical floor. On workup for syncope, EEG showed left temporal irritability. Neurology was consulted and she was placed on levetiracetam 250 mg bid. She will need to follow up with Neurology as an outpatient. As for the rib fractures, the tiny pneumothorax resolved on repeat chest X-ray. She was given lidocaine patch for pain control. She did not require home PT services. She was discharged home with incentive spirometer, seizure precautions, and instructions to follow up with her primary care doctor in 1 week. Time Spent with Patient Time attestation: Total time spent providing and/or coordinating discharge services: Discharge coordination time: Greater than 30 minutes Quality: Stroke Does the patient have a stroke diagnosis?: No Physical Exam Vital Signs: Vital Signs: Last Vital Signs Temp 97 F 01/26/22 10:58 Pulse 69 01/26/22 10:58 Resp 18 01/26/22 10:58 BP 110/57 L 01/26/22 10:58 Pulse Ox 97 01/26/22 10:58 BMI result Body Mass Index 21.0 Gen: in no acute distress HEENT: sclera anicteric, moist mucus membranes Neck: supple Lungs: clear to auscultation bilaterally Heart: regular rate and rhythm, no murmurs Abd: soft, non-tender, non-distended Ext: no edema Skin: warm/well-perfused Neuro: alert and oriented x3, no focal findings Psych: appropriate affect DS: Data Data Completed and Pending Completed studies during hospitalization [Text1]: Laboratory Results WBC 11.3 X10*3/uL (4.8-10.8) H 01/24/22 10:27 RBC 5.06 X10*6/uL (4.20-5.50) 01/24/22 10:27 Hgb 13.5 g/dl (12.0-16.0) 01/24/22 10:27 Hct 42.7 % (37.0-47.0) 01/24/22 10:27 MCV 84.4 fL (80.0-98.0) 01/24/22 10:27 MCH 26.7 pg (27.0-33.0) L 01/24/22 10:27 MCHC 31.6 g/dl (31.0-35.0) 01/24/22 10:27 RDW 13.6 % (11.0-16.0) 01/24/22 10:27 Plt Count 239 X10*3/uL (160-400) 01/24/22 10: MPV 10.3 fL (9.4-12.3) 01/24/22 10: Immature Gran % (Auto) 0.4 % (0.0-0.4) 01/24/22 10: Neut % (Auto) 87.6 % (45-73) H 01/24/22 10: Lymph % (Auto) 6.6 % (20-40) L 01/24/22 10: Heard % (Auto) 4.6 % (2-11) 01/24/22 10: Eos % (Auto) 0.3 % (0-4) 01/24/22 10: Baso % (Auto) 0.5 % (0-2) 01/24/22: Lymph # (Auto) 0.7 X10*3/uL (1.2-4.9) L 01/24/22 10: Heard # (Auto) 0.5 X10*3/uL (0.1-1.2) 01/24/22 10: Eos # (Auto) 0.0 X10*3/uL (0.0-0.4) 01/24/22 10: Baso # (Auto) 0.1 X10*3/uL (0.0-0.2) 01/24/22 10: Abs Immat Gran (auto) 0.04 X10*3/uL (0.00-0.03) H 01/24/22 10: Absolute Neuts (auto) 9.9 x10*3/uL (2.0-8.3) H 01/24/22 10: Absolute Nucleated RBC 0.000 X10*3/uL (0.0-0.012) 01/24/22 10: Nucleated RBC % (auto) 0.0 /100WBC (0.0-0.2) 01/24/22 10: PT 11.9 SEC (9.9-13.0) 01/24/22 13:54 INR 1.0 (0.9-1.1) 01/24/22 13:54 APTT 31.4 SEC (24.1-38.0) 01/24/22 13:54 Sodium 138 mmol/L (135-145) 01/24/22 10:27 Potassium 4.3 mmol/L (3.3-5.1) 01/24/22 10:27 Chloride 104 mmol/L (96-108) 01/24/22 10:27 Carbon Dioxide 26 mmol/L (22-29) 01/24/22 10:27 Anion Gap 12 (12-20) 01/24/22 10:27 BUN 27 mg/dL (9-16) H 01/24/22 10:27 Creatinine 0.90 mg/dL (0.5-1.4) 01/24/22 10:27 Estim Creat Clear Calc 44.6 01/24/22 10:27 Estimated GFR > 60 01/24/22 10:27 Random Glucose 126 mg/dL (60-115) H 01/24/22 10:27 Calcium 9.3 mg/dL (8.4-10.2) 01/24/22 10:27 Magnesium 2.3 mg/dL (1.6-2.6) 01/24/22 10:27 Total Bilirubin 0.4 mg/dL (0.0-1.0) 01/24/22 10:27 Direct Bilirubin 0.2 mg/dL (0.0-0.5) 01/24/22 10:27 AST 30 U/L (5-31) 01/24/22 10:27 ALT 21 U/L (0-31) 01/24/22 10:27 Alkaline Phosphatase 74 U/L (39-117) 01/24/22 10:27 Total Creatine Kinase 151 U/L (26-140) H 01/24/22 10:27 Troponin I High Sens < 3.5 ng/L (<3.5-17.0) 01/24/22 14:38 Total Protein 7.3 g/dL (6.5-8.0) 01/24/22 10:27 Albumin 4.2 g/dL (3.5-5.0) 01/24/22 10:27 Urine Color YELLOW 01/24/22 17:37 Urine Appearance CLEAR 01/24/22 17:37 Urine pH 6.5 (5.0-8.0) 01/24/22 17:37 Ur Specific [place] 1.010 (1.005-1.025) 01/24/22 17:37 Urine Protein NEG MG/DL (NEG-TRACE) 01/24/22 17:37 Urine Glucose (UA) NEG MG/DL (NEG) 01/24/22 17:37 Urine Ketones 15 MG/DL (NEG) 01/24/22 17:37 Urine Blood NEG (NEG) 01/24/22 17:37 Urine Nitrite NEG (NEG) 01/24/22 17:37 Ur Leukocyte Esterase NEG (NEG) 01/24/22 17:37 COVID-19 (ADAM) Negative (Negative) 01/24/22 11:15 COVID-19 Clin Com See Note 01/24/22 11:15 Impressions Ribs X-Ray 01/24/22 11:05 IMPRESSION: Displaced left lateral eighth, ninth and 10th rib fractures. There is no pneumothorax. There is minimal bilateral apical pleural thickening. Cervical Spine CT 01/24/22 11:16 IMPRESSION: Degenerative changes. No fracture or dislocation seen. Fleischner guidelines were followed. Head CT 01/24/22 11:16 IMPRESSION: Unremarkable exam. Abdomen/Pelvis CT 01/24/22 15:40 IMPRESSION: No acute findings in the abdomen or pelvis.. Fleischner guidelines were followed. Chest CTA 01/24/22 15:40 IMPRESSION: No evidence of pulmonary embolism. Acute left posterior lateral ninth, 10th and 11th rib x-rays. Question tiny left pneumothorax measuring maximum 2 mm in thickness. VTE: negative Chest X-Ray 01/24/22 20:43 IMPRESSION: No pneumothorax. No acute cardiopulmonary findings. TTE 01/25/22 - The left ventricular systolic function is normal.? The ? calculated ejection fraction is 63% by biplane method. ? - There is mild mitral valve regurgitation.? - There is mild tricuspid valve regurgitation. ? EEG 01/25/22 Abnormal electroencephalogram suggestive of left temporal irritability, which suggest risk for partial or complex partial seizures. Discharge Plan Discharge Patient Disposition: Home, Self-Care Discharge Diagnosis: New-onset seizure causing syncope Rib fractures with pneumothorax [latter resolved] Referrals: Kennedi Pittman MD [Physician] - 2 Weeks Balwinder Hernandez MD [Primary Care Provider] - 1 Week Discharge Medications: New lidocaine [Lidocaine Pain Relief] 4 % Adhesive Patch,Medicated 1 patch transdermal DAILY Qty: 30 0RF Protocol: Apply to: Apply to: left posterior chest wall levetiracetam 250 mg Tablet 250 mg PO BID Qty: 60 0RF Continued pravastatin 20 mg tablet 1 tab PO DAILY 0RF Discharge Orders: Discharge Order (Routine); Ordered 01/26/22 Ordered By: Elías Dumont Diet: advance to usual diet Activity on Discharge: As tolerated Stand Alone Forms: Patient Portal Discharge page Care Plan Goals: control of seizures healing of rib fractures Health Concerns: New-onset seizure causing syncope Rib fractures with pneumothorax [latter resolved] Plan of Treatment: seizures: start levetiracetam [Keppra] 250 mg twice daily and follow up with [place] [facility] [place] rib fractures: take acetaminophen [Tylenol] and lidocaine patch for pain control Assessment: see Discharge Summary Patient Instructions: Levetiracetam (By mouth), Rib Fracture (DC), New-Onset Seizure in Adults (DC)
--- NOTE | 2022-01-26 12:05 | MHC.CM.PN ---
NURSE MANAGER MEMBERSHIP NOTE ELECTRONIC MEDICAL RECIORS REVIEQEDALONG WITH CASE DISCUSSED WITH HOSPITALIST . MET WITH PATINT SHE IS AWARE THAT SHE WILL BE DISCHARGED HOME TODAY , ALERT AND ORIENTATED X3 , INDEPENDENTY IN AM,BULATIONWITH OUT ANYDEVICE DISCHARGE PLAN HOME NO SERVICES TRANSPORTATION TO SELF ARRANGE WITH A NEIGHBOR PCP DR DELVIN HOLLIS [facility] IMM 3
--- NOTE | 2022-01-26 12:25 | MHC.CM.PN ---
PATIENT IS DISCHARGED HOME - SELF CARE
== END 2022-01-26 13:06 | disposition home or self-care (01) | DRG 200 ==
LOC: HO.ED 16:29 → HO.EDOVER 17:22 → HO.S3 19:36
PROVIDERS: Physician Assistant; Admitting Provider Hospitalist; Emergency Provider Emergency Medicine; PCP Family Medicine; Visit Provider Family Medicine
DX: S27.0XXA Traumatic pneumothorax, initial encounter (principal); S22.42XA Multiple fractures of ribs, left side, initial encounter for closed fracture; R55 Syncope and collapse; G40.909 Epilepsy, unspecified, not intractable, without status epilepticus; W18.30XA Fall on same level, unspecified, initial encounter; E86.0 Dehydration; E78.5 Hyperlipidemia, unspecified; Y92.002 Bathroom of unspecified non-institutional (private) residence as the place of occurrence of the external cause; Z79.899 Other long term (current) drug therapy
CPT/HCPCS: 36415; 70450; 71045; 71101; 71275; 72125; 74177; 80048; 80076; 81003; 82550; 83735; 84484; 85025; 85610; 85730; 87635; 93005; 93306; 95816; 96361; 96374; 97162; 99285; J1650; Q9967

== ENCOUNTER 2022-02-15 08:58 | Outpatient (REF) | payer MEDICARE, OTHER, SELFPAY ==
[2022-02-15 11:23] LABS: Vitamin B12 706 pg/mL (200-900)
== END 2022-02-15 08:59 | disposition home or self-care (01) ==
LOC: HO.LAB 08:58
PROVIDERS: PCP Family Medicine; Visit Provider Psychiatry & Neurology Neurology
DX: G31.84 Mild cognitive impairment of uncertain or unknown etiology (principal)
CPT/HCPCS: 36415; 82607

== ENCOUNTER 2022-02-27 09:33 | Outpatient (REF) | payer MEDICARE, OTHER, SELFPAY ==
--- NOTE | ~2022-02-27 | MR_ITS ---
EXAMINATION: MR BRAIN WITHOUT AND WITH CONTRAST CLINICAL INFORMATION: Complex partial seizure disorder. Mild cognitive impairment. COMPARISON: CT scan the head 01/22/2022. TECHNIQUE: Multiplanar MR imaging of the brain was performed without contrast. FINDINGS: Dedicated coronal oblique imaging through the temporal lobes reveals symmetric size, signal intensity, and morphological appearance of the hippocampal formations. No evidence of mesial temporal sclerosis. Postcontrast images reveal no abnormal intracranial mass or enhancement. There is no intracranial mass effect midline shift. There is symmetric prominence of the subarachnoid spaces over both parietal convexities suggesting loss of parenchymal volume. No hydrocephalus. Midline structures including the cervicomedullary junction are normal. No acute bone marrow signal changes. There is no acute territorial infarct. No pathological magnetic susceptibility artifact. Intracranial vascular flow voids are grossly maintained. There is no mastoid or middle ear effusion. Trivial mucosal thickening within ethmoid air cells. Globes and orbits are symmetric. MR/MR head/brain wo/w con IMPRESSION: There is symmetric prominence of the subarachnoid spaces over both parietal convexities suggesting loss of parenchymal volume. Otherwise unremarkable examination. No evidence of acute territorial infarct or hemorrhage. No abnormal intracranial mass or enhancement.
== END 2022-02-27 09:34 | disposition home or self-care (01) ==
LOC: HO.MRI 09:33
PROVIDERS: Visit Provider Psychiatry & Neurology Neurology
DX: G40.209 Localization-related (focal) (partial) symptomatic epilepsy and epileptic syndromes with complex partial seizures, not intractable, without status epilepticus (principal); G31.84 Mild cognitive impairment of uncertain or unknown etiology
CPT/HCPCS: 70553; A9585